=== PATIENT | female | born 1985 ===

== ENCOUNTER 2023-11-11 06:09 | Day surgery (SDC) | payer OTHER ==
[~2023-11-11 06:09] MED LIST: ONZETRA XSAIL11 MG NASAL; TOPROL XL25 M1 PO; ZOCOR20 MG PO
[2023-11-11] MEDS ORDERED: CEFAZOLIN SODIUM 1,000 MG VIAL ONE (07:00)
[2023-11-11] MEDS ORDERED: CEFAZOLIN SODIUM 1,000 MG VIAL IV SCH (11:45)
[2023-11-11] MEDS ORDERED: OXYMETAZOLINE HCL 15 ML NASAL DROPS NASAL SCH (11:45)
[2023-11-11] MEDS ORDERED: TRIAMCINOLONE ACETONIDE 40 MG/ML VIAL ONE (11:53)
[2023-11-11] MEDS ORDERED: DEXAMETHASONE SODIUM PHOSP/PF 10 MG/ML VIAL ONE (12:08)
[2023-11-11] MEDS ORDERED: FAMOTIDINE/PF 20 MG/2 ML VIAL ONE (12:09)
[2023-11-11] MEDS ORDERED: TRAM1TAB98 PO (12:40)
[2023-11-11] MEDS ORDERED: TRIAMCINOLONE ACETONIDE 40 MG/ML VIAL IJ SCH (12:45)
[2023-11-11] MEDS ORDERED: DEXAMETHASONE SODIUM PHOSP/PF 10 MG/ML VIAL IV SCH (12:45)
[2023-11-11] MEDS ORDERED: FAMOTIDINE/PF 20 MG/2 ML VIAL IV SCH (12:45)
== END 2023-11-11 15:00 | disposition home or self-care (01) ==
LOC: CIR.AMB 06:09
PROVIDERS: ATTEND Otolaryngology
DX: J38.3 Other diseases of vocal cords (principal); R49.0 Dysphonia; Z91.013 Allergy to seafood; Z20.822 Contact with and (suspected) exposure to COVID-19